=== PATIENT | female | born 1995 | race Caucasian/White ===

== ENCOUNTER 2016-11-26 12:37 | Outpatient (CLI) | payer MEDICAID ==
[~2016-11-26] VITALS: Ht 160 cm; Wt 98.9 kg
[~2016-11-26 12:37] MED LIST: AMOXICILLIN AND1 TA1 PO; BACTRIM DS 8001 TA1 PO; CIPRO 500MG TA500 MG PO; CONCERTA36 MG PO; DICLEGIS1 TCP PO; FERROUS SULFAT325 M1 PO; FLOMAX 0.4MG C0.4 MG PO; KEFLEX500 M1 PO; MACRODANTIN100 MG PO; NOMEDS *; NOMEDS XX; PEPCID40 MG PO; PHENERGAN 25MG.25 M1 PO; PHENERGAN25 M3 PO; PRENATAL PLUS1 TA1 PO; PYRIDIUM 200MG200 MG PO; STRATTERA60 MG PO; WELLBUTRIN 150150 MG PO; ZOFRAN4 MG PO; Zofran4 MG PO
--- NOTE | 2016-11-26 13:27 | HISTORY AND PHYSICAL REPORT ---
Demographics: Admit date: 11/26/16 Chief complaint: I feel swollen all over PRIMARY DIAGNOSIS: * (SEVERE PREECLAMPSIA) Allergies: Coded Allergies: sulfamethoxazole (From BACTRIM) (07/16/16) trimethoprim (From BACTRIM) (07/16/16) venom-honey bee (BEE VENOM (HONEY BEE)) (07/16/16) History of present illness: History of present illness: 21 y/o @ 32 5/7wks with EDC 01/16/17. Pt stated an unsure LMP of 04/18/16. Pt presents to L&D with c/o being swollen all over, especially worse around her eyes and legs. Pt notes worsening dizziness, AKINS, blurred vision and RUQ pain. Pt states she has not been feeling herself. Pt was going to drive herself to hospital but the dizziness was just worsening. Pt notes good FM but denies VB and notes occasional karlie guerra.. Denies any complications Past medical history: Family HX Family Hx Insignificant No Diabetes Yes CAD Yes Hypertension Yes Hyperlipidemia Yes Cancer Yes TB No Immunization HX DT/Tetanus 5-10 YRS Flu Refused Pneumonia Refuses General CAD? No Angina: No NH: No Hypertension? No Hyperlipidemia? No CHF? No DVT? No PE? No COPD? No Asthma? No Anemia? No GERD? No Gastric ulcers? No GI Bleed? No Hernia? No Thyroid Problems? No Hypothyroidism? No CVA? No Seizures? No Diabetes? No Renal Insuffiency? No UTI? No Stones? No GB Disease: No Nephritic Syndrome? No Asplenia? No Hepatitis? No Sickle Cell Disease? No Arthritis? No Migraines? No Cataracts? No Glaucoma? No MRSA? No HIV? No TB? No Anxiety? No Depression? No Cancer? No More? Yes Additional hx: OVARIAN CYSTS Past Surgical HX Previous Surgery?Y Tonsils Current home meds: Reported Medications MULTIVIT-MIN W/FE-FA ( Multivitamin Tablet) 1 TAB PO DAILY Ferrous Sulfate (Iron Tablet) 325 MG PO DAILY Social Hx: Smoking HX Tobacco No Alcohol Alcohol: No Hx of Drug Use Drug Use? No Patien't marital status is single Patient's support system is good Review of systems: Constitutional see HPI, weakness. No: chills, diaphoresis, fever, malaise. Eyes blurred vision. No: blindness, drainage, decreased acuity, foreign body sensation, inflammation, pain, photophobia, previous injury, shadows, tunnel vision, vision change, contact lenses, glasses. Ears, Nose, Mouth, Throat No no symptoms reported Respiratory No: no symptoms reported. Cardiovascular No chest pain, edema, No palpitations, No syncope Gastrointestinal/Abdominal No no symptoms reported Genitourinary No: no symptoms reported. Musculoskeletal back pain, joint swelling. No: gout, joint pain, muscle pain, muscle stiffness, neck pain. Skin No: no symptoms reported. Neurological Yes: headache, weakness. No: numbness, tingling, tremors, parasthesia, seizure disorder. Psychiatric No: no symptoms reported. Exam: Lab data for last 24 hours: SVE; closed/thick/high GBS culture obtained Admission vital signs: Initial BP 158/110 repeat 166/114, P-94, O2-97%RA Exam General appearance: face symmetric, no acute distress, well-developed, well- nourished, obese Eyes: normal exam Respiratory: normal exam ABD: normal bowel sounds, no rebound, soft, no tenderness, no guarding, no palpable mass (Gravid) Genitourinary: urine cloudy Extremities: pedal pulses, edema (2+pedal edema) Musculoskeletal: normal exam Skin: normal exam Neuro: normal exam Plan: Problem List 1. 2. Pre-eclampsia affecting , antepartum Plan: Elevated BP in severe range for preeclampsia. Meets criteria for preeclampsia with severe features Will transfer to [facility] Start Magnesium sulfate of 6gm IV load for neuroprotection and seizure prophylaxis then 2gm/hr Betametasone 12mg IM Q24hr x2 doses BPP pending GC/CT cx sent and pending PIH labs pending GBS cx pending
[2016-11-26 13:38] LABS: BILIRUBIN, INDIRECT 0.21 mg/dL (0-0.9); BUN 8 mg/dL (7-18); GFR (ESTIMATED) 156 ML/MIN (59-)
[2016-11-26 13:40] VITALS: BP 158/110
[2016-11-26] MEDS ORDERED: IRON TABLETS325 MG PO (13:44)
[2016-11-26 13:47] LABS: URINE BLOOD NEGATIVE (NEG)
[2016-11-26 13:50] LABS: URINE BILIRUBIN - DIPSTICK 1+ (NEG)
[2016-11-26 13:56] LABS: URINE SQUAMOUS CELLS 20-50 #/hpf (0-5)
[2016-11-26 14:12] LABS: ABO BLOOD TYPE B; RH BLOOD TYPE POSITIVE
[2016-11-28 10:37] LABS: Neisseria gonorrhoeae, NAA Negative (Negative)
--- NOTE | 2017-01-18 10:55 | RADIOLOGY REPORT PS360 ---
US PREG [id number], US PREG [id number], US BIOPHYSICAL PROFILE, SD RATIO UMBILICAL ARTERY INDICATION -induced hypertension. Preeclampsia : BPP TECHNIQUE: ultrasound transabdominal scanning/BH COMPARISON: September 05, 2016 complete evaluation revealed average ultrasound age 21 weeks 2 days at that time FINDINGS Difficult scan. Patient given medications for eclampsia/preeclampsia. Single viable intrauterine gestation. Cephalic position. The cervix not well-visualized these images but appears closed. Anterior placenta. No previa. Grade 1 Limited survey performed and was unremarkable on the submitted images in PACS.No discrete anomalies identified on survey imaging by technologist Active fetus. Three-vessel cord with satisfactory umbilical cord insertion. . Limited images of head, brain & ventricles unremarkable. Very limited neck survey grossly unremarkable.. Limited views of heart demonstrated heartbeat cardiac activity on a cine loop heart rate 128 No good images of abdomen were submitted .. measurements:. Average ultrasound age 32 weeks 6 days. Gestational age 32 weeks 5 days based on LMP 04/11/2016 . BPD = 33 weeks 0 days OFD = 32 week 5 day HC = 32 weeks 4 day AC = not obtained FL = not obtained Heart rate = 126-140 BPM BPM. Amniotic fluid.-. Diminished overall. BERTRAND = 7.1 with largest pocket RLQ 4.4 cm .BIOPHYSICAL PROFILE = 6 of 8 points scored by technologist. Only one episode breathing; & only one episode of movement observed. thus she scored 0 on tone. Low amniotic fluid as well but with pocket meeting criteria Results were communicated by the technologist at the time to the the ordering physician/. Chief School Finance Officer & review following days by the radiologist . SD RATIO = 3.6 IMPRESSION: 1. Single viable intrauterine gestation in cephalic position.. Anterior placenta. No previa 2.... 32 weeks 6 daysaverage ultrasound age today 3.. Abnormal biophysical profile: 6 of 8 points.. Biophysical profile 6 of 8 points and and nearly lower Diminished tone and movement. 4.... Abnormal low BERTRAND = 7.1 Diminished amniotic fluid but adequate single pocket for biophysical profile scoring 5. Difficult scan
== END 2016-11-26 15:55 | disposition short-term general hospital (02) ==
LOC: OBOUT 12:37 → OB 12:37 → OBOUT 15:55
PROVIDERS: Obstetrics & Gynecology
DX: O26.93 Pregnancy related conditions, unspecified, third trimester (principal); R42 Dizziness and giddiness; R51 Headache; M79.89 Other specified soft tissue disorders; Z3A.32 32 weeks gestation of pregnancy

== ENCOUNTER 2017-09-01 11:10 | Emergency (ER) | payer MEDICAID ==
[~2017-09-01] VITALS: Ht 160 cm; Wt 90.7 kg
[~2017-09-01 11:10] MED LIST changes: +IRON TABLETS325 MG PO
--- NOTE | 2017-09-01 11:20 | Emergency Room Report ---
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 Clinical Suspician of Infection? Mental Status: Sepsis Risk: Have you (or family members/close friends) recently traveled outside the [place]? If Yes, where/when: Have you had exposure to infectious disease within the past month? TB? Other? Specify: Source patient, RN notes reviewed Exam Limitations no limitations Comment pT PRESENTS TO THE ed WITH A TIGHTNESS IN HER CHEST FOR THE PAST COUPLE OF DAY WITH COUGHA ND AKINS AND IS ACHY ALL OVER. SHE HAS ALSO HAD A LOW GRADE TEMP SHE IS ON BCP BUT HAS MISSED SOME PILLS RECENTLY AND PERIOD JUST ENDED A COUPLE OF DAYS AGO. Cardiac Chest Pain Chest pain indicative of cardiac No ALLERGIES Coded Allergies: sulfamethoxazole (From BACTRIM) (07/16/16) trimethoprim (From BACTRIM) (07/16/16) venom-honey bee (BEE VENOM (HONEY BEE)) (07/16/16) Home Medications Reported Medications No Known Home Medications History Medical History General CAD? No Angina: No CA: No Hypertension? No Hyperlipidemia? No CHF? No DVT? No PE? No COPD? No Asthma? No Anemia? No GERD? No Gastric ulcers? No GI Bleed? No Hernia? No Thyroid Problems? No Hypothyroidism? No CVA? No Seizures? No Diabetes? No Renal Insuffiency? No End Stage Renal Disease? No UTI? No Stones? No GB Disease: No Nephritic Syndrome? No Asplenia? No Hepatitis? No Sickle Cell Disease? No Arthritis? No Migraines? No Cataracts? No Glaucoma? No MRSA? No HIV? No TB? No Anxiety? No Depression? No Cancer? No More? Yes Additional hx: OVARIAN CYSTS Immunization Hx DT/Tetanus 5-10 YRS Flu 2016-17FSN Pneumonia Refuses Surgical Hx Previous Surgery?Y Tonsils Family History Family Hx Diabetes Yes CAD Yes Hypertension Yes Hyperlipidemia Yes Cancer Yes TB No Social History Smoking Hx Packs/day N/A Alcohol Alcohol: No Review of Systems All Other Systems Reviewed and Negative ENT see HPI. Respiratory see HPI Physical Exam Vital Signs Vital Signs Date Time Temp Pulse Resp B/P Pulse O2 O2 Flow FiO2 Ox Delivery Rate 09/01 1337 88 16 133/85 99 09/01 1239 94 16 135/78 98 09/01 1112 98.5 87 16 150/90 98 General Appearance normal appearance, WD/WN, no apparent distress Ear, Nose, Throat throat red without exudates Respiratory Status No: respiratory distress. Lung Sounds bilateral: rhonchi. 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 No Results/Orders Laboratory Tests 09/01/17 1200: WBC 4.3 L, RBC 5.27, Hgb 13.7, Hct 40.9, MCV 77.6 L, RDW 13.9, Plt Count 250, MPV 6.9 L, Gran % 58.9, Gran # 2.4, Lymphocytes % 30.3, Monocytes % 9.3, Eosinophils % 0.9, Basophils % 0.6, Lymphocytes # 1.3, Monocytes # 0.4, Eosinophils # 0.0, Basophils # 0.0, PUBS MCHC 33.5, MCH 26.0 L 09/01/17 1140: Influenza Type A Ag NOT DETECTED, Influenza Type B Ag NOT DETECTED, Urine Color YELLOW, Urine Appearance CLEAR, Urine pH 8.0, Ur Specific [place] 1.015, Urine Protein NEGATIVE, Urine Ketones NEGATIVE, Urine Blood NEGATIVE, Urine Nitrate NEGATIVE, Urine Bilirubin NEGATIVE, Urine Urobilinogen 0.2, Ur Leukocyte Esterase TRACE H, Urine WBC OCC, Ur Squamous Epith Cells 5-10, Urine Bacteria 1 +, Urine Glucose NEGATIVE 09/01/17 1133: Sodium 138, Potassium 3.8, Chloride 104, Carbon Dioxide 25, BUN 8, Creatinine 0.6, Estimated Creat Clear 211 H, Estimated GFR (MDRD) 125, Glucose 86, Calcium 8.9, Total Bilirubin 0.4, AST 15, ALT 22, Alkaline Phosphatase 76, Total Protein 7.4, Albumin 3.9, Globulin 3.5 H, Albumin/Globulin Ratio 1.1 Current Medication Orders Sig/Chelsy Start time Last Medication Dose Route Stop Time Status Admin Sodium Chloride 10 ML PRN PRN 09/01 114 AC IV 09/02 1132 Orders Procedure Date/time Status CULTURE, THROAT 09/01 114 Active URINE 09/01 114 Complete IV SALINE LOCK 09/01 1133 Active CULTURE, BLOOD 09/01 1133 Active URINALYSIS/COMPLETE 09/01 1133 Complete STREP SCREEN THROAT 09/01 1133 Complete INFLUENZA A&B ANTIGENS 09/01 1133 Complete CBC WITH AUTO DIFF 09/01 113 Complete CHEM 12 PROFILE 09/01 1133 Complete XRAY/CT/US XRAY/CT/US XRAY chest XR interpretation by discussed w/radiologist Xray Results normal/NAD Departure Departure Time of Disposition 1350 Disposition DC Home or Self Care(routine) Clinical Impression Primary Impression: Acute upper respiratory infection Secondary Impressions: Bronchitis Condition STABLE Patient Instructions Acute Bronchitis Additional Instructions Use medicines as directed. Return to the ED or followup with PCP as needed for any worsening symptoms Discharge Counseling Counseled pt/family regarding diagnosis, test results, medications/RX, home care, follow up needs Prescriptions Current Visit Scripts Azithromycin (Zithromax) 250 MG PO DIRECTED #6 TAB 2 tabs po first day and 1 tab po daily for 4 more days Guaifenesin/Dextromethorphan (Robitussin Cough-Chest Dm Liq) 237 ML PO Q4HP PRN cough #240 ML ED Critical Care Critical Care No If Critical Care minutes are documented, the time involved in the performance of seperately reportable procedures was not counted toward critical care time documented. I directly delivered medical care to this critically ill and/or injured patient. Timely evaluation and treatment was necessary to address the significant organ system(s) dysfunction present in this patient. at 1354
--- OUTSIDE RECORDS SUMMARY | 2017-09-01 11:39 | External Medical Summary Rpt | CCD ---
Author Author , KYLER CHÁVEZ Address Unknown Phone [email or web address] Care Team Providers Care Manager Photography Name Role Phone Kenny Broderick MD, Unavailable Unavailable Kenny Gutierrez MD, Unavailable Unavailable Carolyn Gutierrez MD Purpose Continuity of Care Document - 07-07-2005 through 2016 Problems Code Diagnosis DOS Provider Status 698.9 698.9 03-29-2013 [place] PRURITIC [facility] DISORDER [facility] NOS 599.0 599.0 URIN 03-04-2013 [place] TRACT [facility] NOS J20.9 Acute bronchitis, unspecified L60.0 Ingrowing nail R10.84 Generalized abdominal pain R11.0 Nausea S39.012A Strain of muscle, fascia and tendon of lower back, initial encounter Z30.8 Encounter for other contracepti ve management Allergies, Adverse Reactions, Alerts Type Drug Allergy Adverse Reaction to Substance Substance Reaction Severity No Known Allergies - Unknown Mild Nka Trimethoprim I-HIVES Mild Sulfamethoxazole I-HIVES Mild Medications Na ND Rx Da Fi Fi Am Da Di Ph RX Ph St me C No te ll ll ou ys ag ar # ys at rm s nt no ma ic us Or Da si cy ia de te s n re d Ph 00 04 0 No en 60 -3 az 35 0- Lo op 14 20 ng yr 22 13 er id 1 in Ac e ti 20 ve 0M G Ta bl et Le 51 04 0 No vo 07 -3 fl 90 0- Lo ox 03 20 ng ac 52 13 er in 0 Ac 50 ti 0M ve G Ta bl et Vital Signs 03-29-2013 18:00 Name Value Interpretat Reference Comment ion Range Body 98.5 [degF] Temperature BP 80 mm[Hg] Diastolic BP Systolic 132 mm[Hg] Heart 102 /min Rate/Pulse O2% 100 % Respiratory 18 /min Rate 03-29-2013 16:09 Name Value Interpretat Reference Comment ion Range BP 77 mm[Hg] Diastolic BP Systolic 130 mm[Hg] Heart 96 /min Rate/Pulse O2% 98 % Respiratory 18 /min Rate 03-04-2013 06:36 Name Value Interpretat Reference Comment ion Range Body 98.2 [degF] Temperature BP 78 mm[Hg] Diastolic BP Systolic 132 mm[Hg] Heart 78 /min Rate/Pulse O2% 99 % Respiratory 18 /min Rate Results Labs Lab Lab Date Result Refere Interp Status Commen Order Detail nces retati t Range on COMPREHENSIVE METABOLIC PANEL (03-29-2013 17:03) Glucose 03-29- 88 74-106 complet 013 mg/dL ed Bld-mCn 17:03 c BUN 03-29-2 9 mg/dL 7-18 complet Bld-mCn 013 ed c 17:03 Creat 03-29-2 0.8 0.6-1.0 complet SerPl-m 013 mg/dL ed Cnc 17:03 ESTIMAT 03-29-2 96 50-200 complet ED 013 ML/MIN ed CREATIN 17:03 INE CLEARAN CE Sodium 03-29-2 140 136-145 complet SerPl-s 013 mmoL/L ed Cnc 17:03 Potassi 03-29-2 3.7 3.5-5.1 complet um 013 mmoL/L ed SerPl-s 17:03 Cnc Chlorid 03-29-2 104 98-107 complet e 013 mmoL/L ed SerPl-s 17:03 Cnc CO2 03-29-2 27 21.0-32 complet SerPl-s 013 mmoL/L .0 ed Cnc 17:03 Calcium 03-29-2 9.0 8.5-10. complet 013 mg/dL 1 ed SerPl-m 17:03 Cnc Prot 25-2 7.4 6.4-8.2 complet SerPl-m 013 gm/dL ed Cnc 17:03 Albumin 25-2 4.1 3.4-5.0 complet 013 gm/dL ed SerPl-m 17:03 Cnc Globuli 25-2 3.3 1.3-3.2 complet n 013 gm/dL ed Ser-mCn 17:03 c Albumin 03-29-2 1.2 UNK 1.1-1.8 complet /Glob 013 ed SerPl-m 17:03 Rto Bilirub -25-2 0.4 0.2-1.0 complet 013 mg/dL ed SerPl-m 17:03 Cnc AST 25-2 12 U/L 15-37 complet SerPl-c 013 ed Cnc 17:03 ALT -25-2 32 U/L 30-65 complet SerPl-c 013 ed Cnc 17:03 ALP 05-25-2 107 U/L 50-136 complet SerPl-c 013 ed Cnc 17:03 THYROID STIM HORMONE (03-29-2013 17:03) THYROID -25-2 1.11 0.358-3 complet STIM 013 uIU/ml .740 ed HORMONE 17:03 CBC with AUTO DIFF (03-29-2013 17:03) WBC # 05-25-2 5.9 4.5-13. complet Bld 013 K/MM3 0 ed Auto 17:03 RBC # 05-25-2 5.11 4.2-5.4 complet Bld 013 M/mm3 ed Auto 17:03 Hgb 05-25-2 14.7 12.2-16 complet Bld-mCn 013 g/dL .2 ed c 17:03 Hct Fr 25-2 44.0 % 37.0-47 complet Bld 013 .0 ed 17:03 MCV RBC 05-25-2 86.1 fl 82.2-97 complet 013 .8 ed 17:03 MCH RBC -25-2 28.8 pg 27-31.2 complet Qn 013 ed Auto 17:03 MEAN 05-25-2 33.5 31.8-35 complet CORPUSC 013 g/dl .4 ed ULAR 17:03 HGB CONC RDW RBC -25-2 13.1 % 11.5-17 complet Auto 013 .5 ed 17:03 Platele 05-25-2 287 142-424 complet t Bld 013 K/mm3 ed Ql 17:03 Manual MEAN 05-25-2 6.7 fl 7.4-10. complet PLATELE 013 4 ed T 17:03 VOLUME Granulo 05-25-2 54.6 % 37.0-80 complet cytes 013 .0 ed Fr Bld 17:03 Auto LYMPH % 05-25-2 35.5 % 10-50.0 complet 013 ed 17:03 Monocyt 05-25-2 7.5 % 1.7-9.3 complet es Fr 013 ed Bld 17:03 Auto Eosinop 05-25-2 1.9 % 0.1-12. complet hil Fr 013 0 ed Bld 17:03 Auto Basophi 05-25-2 0.5 % 0.1-2.0 complet ls Fr 013 ed Bld 17:03 Auto Granulo 05-25-2 3.2 1.8-7.8 complet cytes # 013 K/mm3 ed Bld 17:03 Auto Lymphoc 05-25-2 2.1 0.7-4.5 complet ytes Fr 013 K/mm3 ed Bld 17:03 Auto Monocyt 05-25-2 0.4 0.1-1.0 complet es # 013 K/mm3 ed Bld 17:03 Auto Eosinop 05-25-2 0.1 0.0-0.4 complet hil # 013 K/mm3 ed Bld 17:03 Auto Basophi 05-25-2 0.0 0-0.2 complet ls # 013 K/MM3 ed Bld 17:03 Auto B-HCG Ur Ql (03-29-2013 15:15) B-HCG 05-25-2 NEGATIV NEG complet Ur Ql 013 E ed 15:15 URINALYSIS/COMPLETE (03-29-2013 15:15) URINE 05-25-2 YELLOW YELLOW complet COLOR 013 ed 15:15 URINE 05-25-2 CLEAR CLEAR complet APPEARA 013 ed NCE 15:15 URINE 05-25-2 NEGATIV NEG complet GLUCOSE 013 E ed - 15:15 DIPSTIC K URINE 05-25-2 NEGATIV NEG complet BILIRUB 013 E ed IN - 15:15 DIPSTIC K URINE 05-25-2 NEGATIV NEG complet KETONE 013 E mg/dL ed 15:15 URINE 05-25-2 1.020 1.005-1 complet SPECIFI 013 UNK .030 ed C 15:15 GRAVITY URINE 05-25-2 TRACE-I NEG complet BLOOD 013 NTACT ed 15:15 URINE 05-25-2 7.0 UNK 5.0-8.5 complet PH 013 ed 15:15 URINE 05-25-2 NEGATIV NEG complet PROTEIN 013 E mg/dL ed - 15:15 DIPSTIC K URINE 05-25-2 0.2 NEG complet UROBILI 013 E.U./dL ed NOGEN - 15:15 DIPSTIC K URINE 05-25-2 NEGATIV NEG complet NITRATE 013 E ed - 15:15 DIPSTIC K URINE 05-25-2 1+ NEG complet LEUK 013 ed ESTERAS 15:15 E URINE 05-25-2 OCC 0 complet RBC 013 rbc/hpf ed 15:15 URINE 05-25-2 3-5 O complet WBC 013 wbc/hpf ed 15:15 URINE 05-25-2 3-5 0-5 complet SQUAMOU 013 #/hpf ed S CELLS 15:15 URINE 05-25-2 3+ O complet BACTERI 013 ed A 15:15 URINE 05-25-2 1+ OCC complet MUCUS 013 ed 15:15 URINE 05-25-2 OCC NONE complet AMORPH 013 ed SEDIMEN 15:15 T B-HCG Ur Ql (03-04-2013 05:52) B-HCG -30-2 NEGATIV NEG complet Ur Ql 013 E ed 05:52 URINALYSIS/COMPLETE (03-04-2013 05:52) URINE -30-2 YELLOW YELLOW complet COLOR 013 ed 05:52 URINE -30-2 CLOUDY CLEAR complet APPEARA 013 ed NCE 05:52 URINE -30-2 NEGATIV NEG complet GLUCOSE 013 E ed - 05:52 DIPSTIC K URINE -30-2 NEGATIV NEG complet BILIRUB 013 E ed IN - 05:52 DIPSTIC K URINE -30-2 NEGATIV NEG complet KETONE 013 E mg/dL ed 05:52 URINE -30-2 1.020 1.005-1 complet SPECIFI 013 UNK .030 ed C 05:52 GRAVITY URINE -30-2 TRACE-L NEG complet BLOOD 013 YSED ed 05:52 URINE 04-30-2 6.5 UNK 5.0-8.5 complet PH 013 ed 05:52 URINE 04-30-2 1+ NEG complet PROTEIN 013 mg/dL ed - 05:52 DIPSTIC K URINE 04-30-2 0.2 NEG complet UROBILI 013 E.U./dL ed NOGEN - 05:52 DIPSTIC K URINE 04-30-2 POSITIV NEG complet NITRATE 013 E ed - 05:52 DIPSTIC K URINE 04-30-2 3+ NEG complet LEUK 013 ed ESTERAS 05:52 E URINE OCC 0 complet RBC 013 rbc/hpf ed 05:52 URINE 03-04- TNTC O complet WBC 013 wbc/hpf ed 05:52 URINE 03-04- 2+ O complet BACTERI 013 ed A 05:52 CULTURE, URINE (02-16-2013 12:56) Clinica Report. complet l 013 ed Report 12:56 Clinica identif complet l 013 ication ed Report 12:56 and sensiti vities to be perform ed on isolate s. Final Clinica >2 complet l 013 [place] ed Report 12:56 types, none predomi nant. Suggest s Contami nation. No Clinica Gram complet l 013 Positiv ed Report 12:56 e Bacilli Resembl ing Lactoba cillus Clinica Gram complet l 013 Positiv ed Report 12:56 e Bacilli Resembl ing Diphthe roids Clinica Mixed complet l 013 Gram ed Report 12:56 Positiv e Cocci Clinica 50,000 complet l 013 Cfu/mL ed Report 12:56 Clinica CUL RES complet l 013 ed Report 12:56 (Final) Clinica Status: complet l 013 Final ed Report 12:56 Last Updated : 013 15:52 Clinica Collect complet l 013 ed: ed Report 12:56 013 12:56 Clinica Specime complet l 013 n: ed Report 12:56 URINE HCG SCREEN,URINE (02-16-2013 12:56) [facility] NEGATIV NEGATIV Normal complet tive 013 E E ed HCG 12:56 URINALYSIS W/MICRO (02-16-2013 12:56) AMORPHO 02-16- 4+ NONE Abnorma complet US 013 SEEN l ed SEDIMEN 12:56 T Mucus TRACE NONE Abnorma complet 013 SEEN l ed 12:56 Epithel 02-16- 10-20 NONE Abnorma complet ial 013 SEEN l ed Cells 12:56 Bacteri 02-16- 2+ NONE Abnorma complet a 013 SEEN l ed 12:56 UA RBC 02-16- 5-10 0-2 Abnorma complet 013 l ed 12:56 UA WBC 04-14-2 5-10 0-2 Abnorma complet 013 l ed 12:56 Blood 04-14-2 2+ NEGATIV Abnorma complet 013 E l ed 12:56 Bilirub 04-14-2 NEGATIV NEGATIV Normal complet in 013 E E ed 12:56 Urobili 04-14-2 norm 0-1 Normal complet nogen 013 mg/dL ed 12:56 Ketones 04-14-2 NEGATIV NEGATIV Normal complet 013 E E ed 12:56 Glucose 04-14-2 NEGATIV NEGATIV Normal complet 013 E E ed 12:56 UA 04-14-2 1+ NEGATIV Abnorma complet Protein 013 E l ed 12:56 Nitrite 04-14-2 NEGATIV NEGATIV Normal complet 013 E E ed 12:56 Leukocy 04-14-2 1+ NEGATIV Abnorma complet te 013 E l ed 12:56 PH 04-14-2 7.0 5.0-7.0 Normal complet 013 ed 12:56 Specifi 04-14-2 1.015 1.016-1 Below complet c 013 .022 low ed [place] 12:56 normal Appeara 04-14-2 HAZY CLEAR Abnorma complet nce 013 l ed 12:56 Color 04-14-2 YELLOW YELLOW, Normal complet 013 STRAW,C ed 12:56 OLORLES S,PALE YELLOW CBC W/DIFF (02-16-2013 12:39) Nucleat 04-14-2 0 complet ed 013 ed RBC'S 12:39 Basophi 04-14-2 0.0 X 0.0-0.1 Normal complet l Count 013 10 ed 12:39 Eosinop 04-14-2 0.1 X 0.0-0.8 Normal complet hil 013 10 ed Count 12:39 Monocyt 04-14-2 0.7 X 0.2-1.2 Normal complet e Count 013 10 ed 12:39 Lymphoc 04-14-2 1.7 X 0.7-4.3 Normal complet yte 013 10 ed Count 12:39 Neutrop 04-14-2 3.8 X 1.5-7.1 Normal complet hil 013 10 ed Count 12:39 Basophi 04-14-2 0.7 % 0.0-1.3 Normal complet ls % 013 ed 12:39 Eosinop -14-2 1.5 % 0.0-8.1 Normal complet hils % 013 ed 12:39 Monocyt -14-2 11.8 % 2.6-14. Normal complet es % 013 5 ed 12:39 Lymphoc -14-2 26.8 % 20.5-51 Normal complet ytes % 013 .1 ed 12:39 Neutrop -14-2 59.2 % 42.0-75 Normal complet hils % 013 .0 ed 12:39 Platele 14-2 253 X 150-400 Normal complet t 013 10 ed 12:39 MPV 14-2 7.0 fl 6.2-10. Normal complet 013 6 ed 12:39 RDW 14-2 13.0 % 11.5-14 Normal complet 013 .5 ed 12:39 MCHC 14-2 33.5 33.0-37 Normal complet 013 gm/dL .0 ed 12:39 MCH 14-2 29.6 pg 27.0-31 Normal complet 013 .0 ed 12:39 MCV 14-2 88.5 fl 81.0-99 Normal complet 013 .0 ed 12:39 Hematoc 14-2 44.3 % 37.0-47 Normal complet rit 013 .0 ed 12:39 Hemoglo 14-2 14.8 12.0-16 Normal complet bin 013 gm/dL .0 ed 12:39 RBC 14-2 5.01 X 4.20-5. Normal complet 013 10 40 ed 12:39 WBC 14-2 6.3 X 4.8-10. Normal complet 013 10 8 ed 12:39 BASIC METABOLIC PANEL (02-16-2013 12:39) BUN/Cre 14-2 13 complet at 013 ed Ratio 12:39 Calcium 14-2 9.3 8.5-10. Normal complet 013 mg/dL 1 ed 12:39 CO2 14-2 24 22-29 Normal complet 013 mmol/L ed 12:39 Chlorid 02-16-2 107 98-107 Normal complet e 013 mEq/L ed 12:39 Potassi 02-16-2 4.5 3.5-5.1 Normal complet um 013 mEq/L ed 12:39 Sodium 04-14-2 141 136-145 Normal complet 013 mEq/L ed 12:39 Creatin 0.7 0.6-1.3 Normal complet ine 013 mg/dL ed 12:39 BUN 9 mg/dL 7-18 Normal complet 013 ed 12:39 Glucose 66 70-100 Below complet 013 mg/dL low ed 12:39 normal Encounters Encounter Start End Date Code Location Performer Type Date Emergency JERED Broderick (ER) 3 15:16 3 18:14 [facility] Emergency JERED Gutierrez MD (ER) 3 06:02 3 06:37 [facility]
--- OUTSIDE RECORDS SUMMARY | 2017-09-01 11:39 | External Medical Summary Rpt | CCD ---
Author Author , KYLER CHÁVEZ Address Unknown Phone Care Team Providers Care Risk Management Manager Name Role Phone Kenny Broderick MD, Unavailable Unavailable Kenny Gutierrez MD, Unavailable Unavailable Carolyn Gutierrez MD Purpose Continuity of Care Document - 07-07-2005 through 2016 Problems Code Diagnosis DOS Provider Status 698.9 698.9 03-29-2013 [place] PRURITIC [facility] DISORDER [facility] NOS 599.0 599.0 URIN 03-04-2013 [place] TRACT [facility] NOS J20.9 Acute bronchitis, unspecified [...] s. Final Clinica >2 complet l 013 [place] ed Report 12:56 types, none predomi nant. [...] Below complet c 013 .022 low ed [place] 12:56 normal Appeara 04-14-2 HAZY CLEAR Abnorma [...] JERED Broderick (ER) 3 15:16 3 18:14 [facility] Emergency JERED Gutierrez MD (ER) 3 06:02 3 06:37 [facility]
--- OUTSIDE RECORDS SUMMARY | 2017-09-01 11:40 | External Medical Summary Rpt | CCD ---
Demographics Preferred Language Italian Marital Status Unknown Quaker Affiliation Unknown Race Unknown Ethnic Group Unknown Author Author , KYLER CHÁVEZ Address Unknown Phone Immunization Unable to retrieve immunization data due to connection failure with Immunization Registry. Please try again later.
--- OUTSIDE RECORDS SUMMARY | 2017-09-01 11:40 | External Medical Summary Rpt | CCD ---
Demographics Preferred Language Azeri Marital Status Unknown Mu-Ism Affiliation Unknown Race Unknown Ethnic Group Unknown Author Author , KYLER CHÁVEZ Address Unknown Phone Immunization Unable to retrieve immunization data due to connection failure with Immunization Registry. Please try again later.
--- OUTSIDE RECORDS SUMMARY | 2017-09-01 11:40 | External Medical Summary Rpt | CCD ---
Author Author [employer] Organization [employer] Address Unknown Phone Unavailable Purpose Continuity of Care Document - through 2016
--- OUTSIDE RECORDS SUMMARY | 2017-09-01 11:40 | External Medical Summary Rpt ---
Author Author MICHAELAMADO Godinez, [employer] Organization [employer] Address Unknown Phone Unavailable Results CT ABDOMEN PELVIS W CONTRAST Observa Value Referen Units Interpr Notes Date tion ce etation Range 05/16/20 No No No No May 16\.br\ informa informa informa informa 2016 \.br\Co tion in tion in tion in tion in 11:34 ntrast source source source source AM CT data data data data abdomen /pelvis with multipl laina reconst ruction s:\.br\ \.br\HI STORY: Diffuse general ized abdomin al pain. Rule out acute inflamm atory\. br\proc ess. No compari son CT imaging studies .\.br\\ .br\Dir ect 5 mm axial imaging after oral contras t and IV injecti on, 100 mL\.br\ Isovue\ .br\70. Additio nal multipl laina reconst ruction s perform ed and reviewe d\.br\s eparate ly.\.br \\.br\A BDOMEN: The visuali zed lung bases are clear. No visuali zed pleural \.br\ef fusion. No\.br\ focal CT abnorma lity of the spleen, liver, adrenal s, pancrea s and\.br \gallbl adder.\ .br\No evidenc e of pancrea titis or gallsto dianelys. Normal appendi x. Nonobst ructive \.br\ailin wel\.br \gas pattern . Bilater al renal functio n without evidenc e of obstruc tive\.b r\uropa thy\.br \or nephrol ithiasi s. Multipl e small scatter ed retrope ritonea l and ileocol ic\.br\ reactiv e lymph nodes which for the most part measure 1 cm or less in size.\. br\\.br \PELVIS : Antever ronnie uterus. Bilater al ovarian follicl es. No focal pelvic\ .br\mas s,\.br\ adenopa thy or inflamm atory process . Bilater al benign scatter ed inguina l\.br\l ymph\.b r\nodes .\.br\\ .br\IMP RESSION :\.br\\ .br\Non obstruc tive bowel gas pattern with normal appendi x. No acute\. br\abdo ector/p elvic\. br\infl ammator y process . Please see above detaile d report. \.br\ Hemogram Observa Value Referen Units Interpr Notes Date tion ce etation Range LEUKOCY 6.1 4.0 - x10(3)/ No No Scooter 1 GONZALO 11.0 mcL informa informa 2017 tion in tion in 8:32 PM source source data data Erythro 5.71 3.80 - x10(6)/ High No Apr 05 cytes 5.10 mcL informa 2016 [#/volu tion in 8:32 PM me] in source Blood data by Automat ed count Hemoglo 12.6 12.0 - gm/dL No No Apr 05 bin 15.6 informa informa 2016 [Mass/v tion in tion in 8:32 PM olume] source source in data data Blood Hematoc 40.7 35.7 - % No No Apr 05 rit 45.9 informa informa 2016 [Volume tion in tion in 8:32 PM source source Fractio data data n] of Blood by Automat ed count Erythro 71.2 82.5 - fL Low No Apr 05 cyte 99.8 2016 mean tion in 8:32 PM corpusc source ular data volume [Entiti c volume] by Automat ed count Erythro 22.1 27.0 - pg Low No Scooter 1 cyte 34.3 informa 2016 mean tion in 8:32 PM corpusc source ular data hemoglo bin [Entiti c mass] by Automat ed count Erythro 31.0 32.1 - gm/dL Low No Scooter 1 cyte 35.3 informa 2016 mean tion in 8:32 PM corpusc source ular data hemoglo bin concent ration [Mass/v olume] by Automat ed count Erythro 19.0 11.5 - % High No Scooter 1 cyte 15.0 informa 2017 distrib tion in 8:32 PM ution source width data [Ratio] by Automat ed count Platele 351 144 - x10(3)/ No No Apr 05 ts 423 mcL informa informa 2016 [#/volu tion in tion in 8:32 PM me] in source source Blood data data by Automat ed count MPV 8.3 6.8 - fL No No Apr 05 10.8 informa informa 2016 tion in tion in 8:32 PM source source data data US PELVIS AND TRANSVAGINAL NON OB COMPLETE Observa Value Referen Units Interpr Notes Date ti ce etation Range US No No No No Nov 2 PELVIS informa informa informa informa 2014 AND tion in tion in tion in tion in 3:35 PM TRANSVA source source source source GINAL data data data data NON OB COMPLET E 09/06/20 15 3:35 PM\.br\ \.br\HI STORY: N83.20- Unspeci fied ovarian cysts-I CD-10-C M\.br\\ .br\Fin dings: No uterine masses. Endomet rial stripe 7 mm thick. 2.1 x 2.1 cm\.br\ simple\ .br\cys t left ovary, consist ent with physiol ogic cyst. Minimal pelvic free\.b r\fluid .\.br\O vary unremar kable.\ .br\\.b r\Impre ssion: Normal. \.br\ TSH Observa Value Referen Units Interpr Notes Date tion ce etation Range Thyrotr 1.380 0.270 - mcIU/mL No No Sep 4 opin 4.200 informa informa 2014 [Units/ tion in tion in 11:06 volume] source source PM in data data Serum or Plasma CMP Observa Value Referen Units Interpr Notes Date tion ce etation Range Sodium 138 136 - mmol/L No No Sep 4 145 informa informa 2014 tion in tion in 11:06 source source PM data data Potassi 3.9 3.5 - mmol/L No No Sep 4 um 5.0 informa informa 2015 [Moles/ tion in tion in 11:06 volume] source source PM in data data Serum or Plasma Chlorid 100 98 - mmol/L No No Sep 4 e 107 informa informa 2015 tion in tion in 11:06 source source PM data data Carbon 25 22 - 29 mmol/L No No Sep 4 dioxide informa informa 2015 , total tion in tion in 11:06 source source PM [Moles/ data data volume] in Serum or Plasma Anion 13 7 - 16 mmol/L No No Sep 4 Gap informa informa 2015 tion in tion in 11:06 source source PM data data CALCIUM 10.0 8.6 - mg/dL No No Sep 4 .TOTAL 10.2 informa informa 2015 tion in tion in 11:06 source source PM data data Glucose 80 74 - mg/dL No No Sep 4 Lvl 100 informa informa 2015 tion in tion in 11:06 source source PM data data BUN 9 6 - 20 mg/dL No No Sep 4 informa informa 2015 tion in tion in 11:06 source source PM data data Creatin 0.59 0.51 - mg/dL No No Sep 4 ine 1.30 informa informa 2014 tion in tion in 11:06 source source PM data data Albumin 4.4 3.5 - gm/dL No No Sep 4 5.2 informa informa 2014 [Mass/v tion in tion in 11:06 olume] source source PM in data data Serum or Plasma Protein 7.3 6.4 - gm/dL No No Sep 4 8.3 informa informa 2014 [Mass/v tion in tion in 11:06 olume] source source PM in data data Serum or Plasma Bilirub 0.4 0.1 - mg/dL No No Sep 4 in.tota 1.3 informa informa 2014 l tion in tion in 11:06 [Mass/v source source PM olume] data data in Serum or Plasma ASPARTA 18 <=40 IU/L No No Sep 4 TE informa informa 2015 AMINOTR tion in tion in 11:06 ANSFERA source source PM SE data data Alanine 10 <=41 IU/L No No Sep 4 informa informa 2015 aminotr tion in tion in 11:06 ansfera source source PM se data data [Enzyma tic activit y/volum e] in Serum or Plasma Alkalin 72 35 - IU/L No No Sep 4 e 104 informa informa 2015 phospha tion in tion in 11:06 tase source source PM [Enzyma data data tic activit y/volum e] in Serum or Plasma CULTURE, URINE Observa Value Referen Units Interpr Notes Date tion ce etation Range Clinica Specime No No No No Apr 15 l n: informa informa informa informa 2012 Report URINECo tion in tion in tion in tion in 3:52 PM llected source source source source : data data data data 12:56St atus: Final Last Updated : 15:52CU L RES (Final) 50,000 Cfu/mLM ixed Gram Positiv e CocciGr am Positiv e Bacilli Resembl ing Diphthe roidsGr am Positiv e Bacilli Resembl ing Lactoba cillus> 2 [place] types, none predomi nant. Suggest s Contami nation. Noident ificati on and sensiti vities to be perform ed on isolate s. FinalRe port. URINALYSIS W/MICRO Observa Value Referen Units Interpr Notes Date tion ce etation Range Color YELLOW YELLOW, No Normal No Apr 14 STRAW,C informa informa 2013 [place] tion in tion in 1:14 PM S,PALE source source YELLOW data data Appeara HAZY CLEAR No Abnorma No Apr 14 nce informa l informa 2013 tion in tion in 1:14 PM source source data data Specifi 1.015 1.016 - No Low No Apr 14 c 1.022 informa informa 2013 [place] tion in tion in 1:14 PM source source data data PH 7.0 5.0 - No Normal No Apr 14 7.0 informa informa 2012 tion in tion in 1:14 PM source source data data Leukocy 1+ NEGATIV No Abnorma No Apr 14 te E informa l informa 2012 tion in tion in 1:14 PM source source data data Nitrite NEGATIV NEGATIV No Normal No Apr 14 E E informa informa 2012 tion in tion in 1:14 PM source source data data UA 1+ NEGATIV No Abnorma No Apr 14 Protein E informa l informa 2012 tion in tion in 1:14 PM source source data data Glucose NEGATIV NEGATIV No Normal No Apr 14 E E informa informa 2012 tion in tion in 1:14 PM source source data data Ketones NEGATIV NEGATIV No Normal No Feb 14 E E informa informa 2012 tion in tion in 1:14 PM source source data data Urobili norm 0 - 1 mg/dL Normal No Feb 14 nogen informa 2013 tion in 1:14 PM source data Bilirub NEGATIV NEGATIV No Normal No Feb 14 in E E informa informa 2012 tion in tion in 1:14 PM source source data data Blood 2+ NEGATIV No Abnorma No Feb 14 E informa l informa 2012 tion in tion in 1:14 PM source source data data UA WBC 5-10 0 - 2 No Abnorma No Feb 14 informa l informa 2012 tion in tion in 1:14 PM source source data data UA RBC 5-10 0 - 2 No Abnorma No Feb 14 informa l informa 2012 tion in tion in 1:14 PM source source data data Bacteri 2+ NONE No Abnorma No Feb 14 a SEEN informa l informa 2012 tion in tion in 1:14 PM source source data data Epithel 10-20 NONE No Abnorma No Feb 14 ial SEEN informa l informa 2012 Cells tion in tion in 1:14 PM source source data data Mucus TRACE NONE No Abnorma No Feb 14 SEEN informa l informa 2012 tion in tion in 1:14 PM source source data data AMORPHO 4+ NONE No Abnorma No Feb 14 US SEEN informa l informa 2012 SEDIMEN tion in tion in 1:14 PM T source source data data HCG SCREEN,URINE Observa Value Referen Units Interpr Notes Date tion ce etation Range Qualita NEGATIV NEGATIV No Normal No Feb 14 tive E E informa informa 2012 HCG tion in tion in 1:07 PM source source data data BASIC METABOLIC PANEL Observa Value Referen Units Interpr Notes Date tion ce etation Range Glucose 66 70 - mg/dL Low No Feb 14 100 informa 2012 tion in 1:15 PM source data BUN 9 7 - 18 mg/dL Normal No Feb 14 informa 2012 tion in 1:15 PM source data Creatin 0.7 0.6 - mg/dL Normal No Feb 14 ine 1.3 informa 2012 tion in 1:15 PM source data Sodium 141 136 - mEq/L Normal No Feb 14 145 informa 2012 tion in 1:15 PM source data Potassi 4.5 3.5 - mEq/L Normal No Feb 14 um 5.1 informa 2012 tion in 1:15 PM source data Chlorid 107 98 - mEq/L Normal No Feb 14 e 107 informa 2012 tion in 1:15 PM source data CO2 24 22 - 29 mmol/L Normal No Feb 14 informa 2012 tion in 1:15 PM source data Calcium 9.3 8.5 - mg/dL Normal No Feb 14 10.1 informa 2013 tion in 1:15 PM source data BUN/Cre 13 No No No No Feb 14 at informa informa informa informa 2013 Ratio tion in tion in tion in tion in 1:15 PM source source source source data data data data CBC W/DIFF Observa Value Referen Units Interpr Notes Date tion ce etation Range WBC 6.3 4.8 - X_10 Normal No Feb 14 10.8 informa 2012 tion in 12:51 source PM data RBC 5.01 4.20 - X_10 Normal No Feb 14 5.40 informa 2012 tion in 12:51 source PM data Hemoglo 14.8 12.0 - gm/dL Normal No Feb 14 bin 16.0 informa 2012 tion in 12:51 source PM data Hematoc 44.3 37.0 - % Normal No Feb 14 rit 47.0 informa 2012 tion in 12:51 source PM data MCV 88.5 81.0 - fl Normal No Feb 14 99.0 informa 2012 tion in 12:51 source PM data MCH 29.6 27.0 - pg Normal No Feb 14 31.0 informa 2012 tion in 12:51 source PM data MCHC 33.5 33.0 - gm/dL Normal No Apr 14 37.0 informa 2012 tion in 12:51 source PM data RDW 13.0 11.5 - % Normal No Feb 14 14.5 informa 2012 tion in 12:51 source PM data MPV 7.0 6.2 - fl Normal No Feb 14 10.6 informa 2012 tion in 12:51 source PM data Platele 253 150 - X_10 Normal No Feb 14 t 400 informa 2012 tion in 12:51 source PM data Neutrop 59.2 42.0 - % Normal No Apr 14 hils % 75.0 informa 2012 tion in 12:51 source PM data Lymphoc 26.8 20.5 - % Normal No Apr 14 ytes % 51.1 informa 2012 tion in 12:51 source PM data Monocyt 11.8 2.6 - % Normal No Apr 14 es % 14.5 informa 2012 tion in 12:51 source PM data Eosinop 1.5 0.0 - % Normal No Apr 14 hils % 8.1 informa 2013 tion in 12:51 source PM data Basophi 0.7 0.0 - % Normal No Apr 14 ls % 1.3 informa 2012 tion in 12:51 source PM data Neutrop 3.8 1.5 - X_10 Normal No Apr 14 hil 7.1 informa 2012 Count tion in 12:51 source PM data Lymphoc 1.7 0.7 - X_10 Normal No Apr 14 yte 4.3 informa 2012 Count tion in 12:51 source PM data Monocyt 0.7 0.2 - X_10 Normal No Apr 14 e Count 1.2 informa 2012 tion in 12:51 source PM data Eosinop 0.1 0.0 - X_10 Normal No Apr 14 hil 0.8 informa 2012 Count tion in 12:51 source PM data Basophi 0.0 0.0 - X_10 Normal No Apr 14 l Count 0.1 informa 2012 tion in 12:51 source PM data Nucleat 0 No No No No Apr 14 ed informa informa informa informa 2013 RBC'S tion in tion in tion in tion in 12:51 source source source source PM data data data data US TRANSVAGINAL Observa Value Referen Units Interpr Notes Date tion ce etation Range Read By Examina No No No No Apr 14 tion informa informa informa informa 2013 transva tion in tion in tion in tion in 12:33 ginal source source source source PM ultraso data data data data und of the pelvis. \.br\Fi ndings uterus measure s about 4.3 cm x 2.2 cm x 3.3 cm.\.br \Endome trial stripe is 3 mm.\.br \Left ovary measure s about 1.6 cm x 2.4 cm x 2.7 cm.\.br \Right ovary measure s about 2.5 cm by 1.4 cm x 2.8 cm.\.br \There is evidenc e of small follicl es in both ovaries , the largest is\.br\ less than 1 cm on the right.\ .br\Lef t ovarian cyst. Less than 1 cm is noted.\ .br\Imp ression simple follicl es in both ovaries .\.br\N o evidenc e of intraut erine gestati onal sac.\.b r\Readi ng Radiolo gist- ANA LAURA FELTON M.D., Radiolo gist\.b r\Relea sing Radiolo gist- ANA LAURA FELTON M.D., [employer]iol[employer] gist\.b r\Relea sed Date Time- 3 9\.b r\Trans criptio nist- ANA LAURA FELTON M.D., Radiolo gist\.b r\----- ------- ------- ------- ------- ------- ------- ------- ------- ------- ------- ---\.br \ XR LOWER EXT TIB/FIB Observa Value Referen Units Interpr Notes Date tion ce etation Range Report LEFT No No No No Sep 2 LOWER informa informa informa informa 2005 LEG\.br tion in tion in tion in tion in 9:00 PM \No source source source source fractur data data data data e or disloca tion is seen. No destruc tive process \.br\is seen. Normal mineral ization of the osseous structu res is\.br\ seen.\. br\IMPR ESSION\ .br\Nor mal study.\ .br\Dt- 1124.\. br\[place] tyshawn BENJAMIN\.b r\Readi ng Radiolo gist- JENNIFER WALTERS\. br\Rele asing Radiolo gist- JENNIFER WALTERS\. br\Rele ased Date Time- 5 1245\.b r\----- ------- ------- ------- ------- ------- ------- ------- ------- ------- ------- ---\.br \ XR FOOT AP/LAT Observa Value Referen Units Interpr Notes Date tion ce etation Range Report LEFT No No No No Sep 2 FOOT\.b informa informa informa informa 2004 r\No tion in tion in tion in tion in 8:40 PM fractur source source source source e or data data data data disloca tion is seen. No destruc tive process \.br\is seen. Normal mineral ization of the osseous structu res is\.br\ seen.\. br\IMPR ESSION\ .br\Nor mal study.\ .br\Dt- 1124\.b r\Trans criptio rina RYAN BENJAMIN\.b r\Readi oskar [employer] [facility]\. br\Rele laron [employer] [facility]\. br\Rele ased Date Time- 5 6334\.b r\----- ------- ------- ------- ------- ------- ------- ------- ------- ------- ------- ---\.br \
--- OUTSIDE RECORDS SUMMARY | 2017-09-01 11:40 | External Medical Summary Rpt ---
[...] e Bacilli Resembl ing Lactoba cillus> 2 [place] types, none predomi nant. Suggest s Contami [...] Apr 14 c 1.022 informa informa 2013 [place] tion in tion in 1:14 PM source [...] criptio rina RYAN BENJAMIN\.b r\Readi oskar [employer] [facility]\. br\Rele laron [employer] [facility]\. br\Rele ased Date Time- 5 9915\.b r\----- ------- ------- ------- ------- ------- ------- ------- ------- ------- ------- ---\.br \
[2017-09-01 11:51] LABS: URINE BILIRUBIN - DIPSTICK NEGATIVE (NEG); URINE BLOOD NEGATIVE (NEG)
[2017-09-01 12:03] LABS: STREP SCREEN (RAPID) NEGATIVE
[2017-09-01 12:36] LABS: HEMOGLOBIN 13.7 g/dL (12.2-16.2)
[2017-09-01 12:37] LABS: LYMPH # 1.3 K/mm3 (0.7-4.5); LYMPH % 30.3 % (10-50.0)
--- NOTE | 2017-09-01 12:45 | RADIOLOGY REPORT PS360 ---
CHEST(2 VIEWS-NOT PORTABLE) HISTORY: COUGH ORDERING PHYSICIAN: Kameron Liao MD PATIENT AGE: 22 years COMPARISON: None available FINDINGS: The cardiomediastinal silhouette and pulmonary vascularity are within normal limits. The lungs are clear without infiltrates, suspicious nodules, or pleural effusions. No acute bony abnormalities. IMPRESSION: Negative chest, no acute finding
[2017-09-01] MEDS ORDERED: ZITHROMAX Z-PA250 M2 PO (13:53)
[2017-09-01] MEDS ORDERED: ROBITUSSIN COU237 M1 PO (13:53)
[2017-09-01 14:00] VITALS: BP 136/79
== END 2017-09-01 14:00 | disposition home or self-care (01) ==
LOC: ER 11:10
PROVIDERS: General Practice
DX: J20.9 Acute bronchitis, unspecified (principal); Z88.2 Allergy status to sulfonamides